=== PATIENT | male | born 1950 | race Caucasian/White ===

== ENCOUNTER 2021-11-05 23:30 | Emergency (ER) | payer MEDICARE, BC ==
[2021-11-05 23:52] VITALS: BP 146/98; PULSE 99
[2021-11-06] MEDS ORDERED: Ondansetron 4 MG Tab.DIS PO ONE (00:10)
[2021-11-06] MEDS ORDERED: Magnesium Citrate Solution 296 ML Bottle PO ONE (02:00)
== END 2021-11-06 02:14 | disposition home or self-care (01) ==
LOC: JP.ED 23:30
DX: K59.01 Slow transit constipation (principal); K21.9 Gastro-esophageal reflux disease without esophagitis; F32.A Depression, unspecified; Z79.899 Other long term (current) drug therapy
CPT/HCPCS: 74019; 74019-26; 99282; 99284; A9270-GY; Q0162

== ENCOUNTER 2022-03-20 08:30 | Inpatient (IN) | payer MEDICARE, BC ==
[~2022-03-20 08:30] MED LIST: Acetaminophen 500 MG Tab PO ONE; Dextrose 5%-Lactated Ringers 1,000 ML IV SCH
[2022-03-20] MEDS ORDERED: Pregabalin 50 MG Cap PO ONE (08:51)
[2022-03-20] MEDS ORDERED: Glycopyrrolate 0.2 MG/ML 5 ML MDV ONE (09:15)
[2022-03-20] MEDS ORDERED: fentaNYL 250 MCG/5 ML SDV ONE (09:15)
[2022-03-20] MEDS ORDERED: Neostigmine Methylsulfate 1 MG/ML 5 ML Syringe ONE (09:15)
[2022-03-20] MEDS ORDERED: Rocuronium 50 MG/5 ML Vial ONE ×2 (09:15→13:01)
[2022-03-20] MEDS ORDERED: Propofol 200 MG/20 ML SDV ONE (09:15)
[2022-03-20] MEDS ORDERED: Succinylcholine 200 MG/10 ML MDV ONE (09:15)
[2022-03-20] MEDS ORDERED: Ondansetron 4 MG/2 ML SDV ONE (09:15)
[2022-03-20] MEDS ORDERED: Dexamethasone 4 MG/ML SDV ONE (09:15)
[2022-03-20] MEDS ORDERED: Sodium Chloride 0.9% 10 ML ONE ×2 (09:17→14:44)
[2022-03-20] MEDS ORDERED: NEOMYCIN ONE ×2 (09:30)
[2022-03-20] MEDS ORDERED: POLYMYXIN B SODIUM CHLORIDE ONE ×2 (09:30)
[2022-03-20] MEDS ORDERED: Naloxone 0.4 MG/ML SDV IVPUSH PRN (10:30)
[2022-03-20] MEDS ORDERED: cefOXitin 2 GM in Sodium Chloride 0.9% 50 ML IV ONE (10:30)
[2022-03-20] MEDS ORDERED: Ketamine 22 MG in Sodium Chloride 0.9% 19.78 ML IV SCH (10:30)
[2022-03-20] MEDS ORDERED: Ketamine 500 MG/5 ML MDV IV SCH (10:30)
[2022-03-20] MEDS ORDERED: Bupivacaine 0.5% 50 ML MDV ONE (11:31)
[2022-03-20] MEDS ORDERED: Lidocaine 1% with EPINEPHrine 1:100,000 50 ML MDV ONE (11:31)
[2022-03-20] MEDS ORDERED: Meropenem 500 MG SDV ONE ×2 (12:22→14:56)
[2022-03-20] MEDS ORDERED: Lactated Ringers 1,000 ML ONE (14:12)
[2022-03-20] MEDS ORDERED: Glucagon,Human Recombinant 1 MG Vial ONE (14:31)
[2022-03-20] MEDS ORDERED: ePHEDrine 50 MG/ML SDV ONE (14:44)
[2022-03-20] MEDS ORDERED: fentaNYL 100 MCG/2 ML SDV ONE (15:05)
[2022-03-20] MEDS ORDERED: Linezolid 600 MG/300 ML Premix Bag IRR ONE (15:30)
[2022-03-20] MEDS ORDERED: Labetalol 20 MG/4 ML Syringe IVPUSH PRN (17:00)
[2022-03-20] MEDS ORDERED: Cyclobenzaprine 10 MG Tab PO PRN (17:00)
[2022-03-20] MEDS ORDERED: ePHEDrine 50 MG/ML SDV IV PRN (17:00)
[2022-03-20] MEDS ORDERED: diphenhydrAMINE 50 MG/ML SDV IVPUSH PRN (17:00)
[2022-03-20] MEDS ORDERED: Ondansetron 4 MG/2 ML SDV IVPUSH PRN (17:00)
[2022-03-20] MEDS: fentaNYL 2,500 MCG in Sodium Chloride 0.9% 200 ML EPIDUR SCH (17:10)
[2022-03-20] MEDS ORDERED: Scopolamine 1.5 MG Transdermal Patch TOP PRN (17:25)
[2022-03-20] MEDS: cefOXitin 2 GM in Sodium Chloride 0.9% 50 ML IV SCH ×2 (17:48→23:15)
[2022-03-20] MEDS: Acetaminophen 500 MG Tab PO SCH (17:51)
[2022-03-20] MEDS: Pantoprazole 40 MG Vial IVPUSH SCH (17:52)
[2022-03-20] MEDS ORDERED: MVI, Adult with Vitamin K 10 ML, Thiamine 200 MG, Zinc/Copper/Manganese/Selenium 1 ML i... IV SCH ×4 (18:00)
[2022-03-20] MEDS: Tamsulosin 0.4 MG Cap.ER PO SCH (20:58)
[2022-03-20] MEDS: traZODone 50 MG Tab PO SCH (20:58)
[2022-03-20] MEDS: atorvaSTATin 20 MG Tab PO SCH (20:58)
[2022-03-21] MEDS: Dextrose 5%-Lactated Ringers 1,000 ML IV SCH ×2 (00:27→02:08)
[2022-03-21] MEDS: Acetaminophen 500 MG Tab PO SCH ×3 (01:49→17:28)
[2022-03-21] MEDS: Naloxone 0.4 MG/ML SDV IV PRN ×2 (02:08→08:42)
[2022-03-21 05:11] LABS: ESTIMATED GFR 46 mL/min (>60)
[2022-03-21] MEDS: cefOXitin 2 GM in Sodium Chloride 0.9% 50 ML IV SCH ×3 (05:31→17:27)
[2022-03-21] MEDS: fentaNYL 2,500 MCG in Sodium Chloride 0.9% 200 ML EPIDUR SCH (07:20)
[2022-03-21] MEDS ORDERED: Dextrose 5%-Lactated Ringers 1,000 ML IV SCH (07:44)
[2022-03-21] MEDS ORDERED: Pregabalin 50 MG Cap PO SCH (09:00)
[2022-03-21] MEDS ORDERED: Lisinopril 5 MG Tab PO SCH (09:00)
[2022-03-21] MEDS ORDERED: Lisinopril 20 MG Tab PO SCH (09:00)
[2022-03-21] MEDS: Docusate Sodium 100 MG Cap PO SCH ×2 (09:18→20:46)
[2022-03-21] MEDS: Bisacodyl 5 MG Tab PO SCH ×2 (09:18→20:46)
[2022-03-21] MEDS: buPROPion 150 MG Tab.ER PO SCH (09:19)
[2022-03-21] MEDS: Lisinopril 10 MG Tab PO SCH (09:19)
[2022-03-21] MEDS: DULoxetine 30 MG Cap PO SCH (09:23)
[2022-03-21] MEDS: Pregabalin 50 MG Cap PO SCH (13:48)
[2022-03-21] MEDS: Metoclopramide 10 MG/2 ML SDV IVPUSH PRN (15:42)
[2022-03-21] MEDS ORDERED: MVI, Adult with Vitamin K 10 ML, Thiamine 200 MG, Zinc/Copper/Manganese/Selenium 1 ML i... IV SCH ×4 (16:00)
[2022-03-21] MEDS ORDERED: Furosemide 40 MG/4 ML VIAL IVPUSH STA (16:44)
[2022-03-21] MEDS: Pantoprazole 40 MG Vial IVPUSH SCH (17:20)
[2022-03-21] MEDS: Aluminum Hydroxide/Magnesium Hydroxide/Simethicone Susp 30 ML Cup PO PRN ×2 (17:51→22:54)
[2022-03-21] MEDS: Tamsulosin 0.4 MG Cap.ER PO SCH (20:46)
[2022-03-21] MEDS: traZODone 50 MG Tab PO SCH (20:46)
[2022-03-21] MEDS: atorvaSTATin 20 MG Tab PO SCH (20:47)
[2022-03-21] MEDS: Pregabalin 100 MG Cap PO SCH (20:49)
[2022-03-22] MEDS: cefOXitin 2 GM in Sodium Chloride 0.9% 50 ML IV SCH ×3 (00:04→13:01)
[2022-03-22] MEDS: Naloxone 0.4 MG/ML SDV IV PRN (00:45)
[2022-03-22] MEDS: Acetaminophen 500 MG Tab PO SCH ×3 (01:58→17:11)
[2022-03-22] MEDS: fentaNYL 2,500 MCG in Sodium Chloride 0.9% 200 ML EPIDUR SCH (04:32)
[2022-03-22 05:01] LABS: ESTIMATED GFR 46 mL/min (>60)
[2022-03-22] MEDS: DULoxetine 30 MG Cap PO SCH (09:28)
[2022-03-22] MEDS: Docusate Sodium 100 MG Cap PO SCH ×2 (09:29→21:24)
[2022-03-22] MEDS: Bisacodyl 5 MG Tab PO SCH ×2 (09:29→21:24)
[2022-03-22] MEDS: Lisinopril 10 MG Tab PO SCH (09:30)
[2022-03-22] MEDS: buPROPion 150 MG Tab.ER PO SCH (09:30)
[2022-03-22] MEDS: Dextrose 5%-Lactated Ringers 1,000 ML with Naloxone 0.4 MG IV SCH ×4 (10:51→21:23)
[2022-03-22] MEDS: Aluminum Hydroxide/Magnesium Hydroxide/Simethicone Susp 30 ML Cup PO PRN ×3 (13:07→22:05)
[2022-03-22] MEDS: Pregabalin 50 MG Cap PO SCH (15:08)
[2022-03-22] MEDS: Pantoprazole 40 MG Vial IVPUSH SCH (17:11)
[2022-03-22] MEDS: Pregabalin 100 MG Cap PO SCH (21:24)
[2022-03-22] MEDS: atorvaSTATin 20 MG Tab PO SCH (21:25)
[2022-03-22] MEDS: Tamsulosin 0.4 MG Cap.ER PO SCH (21:25)
[2022-03-22] MEDS: traZODone 50 MG Tab PO SCH (21:26)
[2022-03-23] MEDS: Metoclopramide 10 MG/2 ML SDV IVPUSH PRN (00:12)
[2022-03-23] MEDS: Acetaminophen 500 MG Tab PO SCH ×3 (01:41→17:56)
[2022-03-23] MEDS: fentaNYL 2,500 MCG in Sodium Chloride 0.9% 200 ML EPIDUR SCH (02:34)
[2022-03-23 05:12] LABS: ESTIMATED GFR 59 mL/min (>60)
[2022-03-23] MEDS ORDERED: Bupivacaine 0.5% 50 ML MDV ONE (06:32)
[2022-03-23] MEDS ORDERED: Lidocaine 1% with EPINEPHrine 1:100,000 50 ML MDV ONE (06:32)
[2022-03-23] MEDS ORDERED: Meropenem 500 MG SDV ONE (06:32)
[2022-03-23] MEDS: Lactated Ringers 500 ML IV SCH ×2 (06:56→14:20)
[2022-03-23] MEDS ORDERED: Ropivacaine 46 ML, dexAMETHasone 8 MG, EPINEPHrine 0.4 MG, Sodium Chloride 0.9% 31.6 ML NERVRT SCH ×4 (07:15)
[2022-03-23] MEDS ORDERED: LORazepam 2 MG/ML SDV IVPUSH PRN (07:56)
[2022-03-23] MEDS ORDERED: Benzocaine/Cetylpyridinium/Menthol Lozenge MUCMEM PRN (07:57)
[2022-03-23] MEDS: Dextrose 5%-Lactated Ringers 1,000 ML with Naloxone 0.4 MG IV SCH ×2 (08:23)
[2022-03-23] MEDS: buPROPion 150 MG Tab.ER PO SCH (08:31)
[2022-03-23] MEDS: Bisacodyl 5 MG Tab PO SCH ×2 (08:31→20:24)
[2022-03-23] MEDS: Docusate Sodium 100 MG Cap PO SCH ×2 (08:32→20:24)
[2022-03-23] MEDS: DULoxetine 30 MG Cap PO SCH (08:32)
[2022-03-23] MEDS: Lisinopril 10 MG Tab PO SCH (08:32)
[2022-03-23] MEDS: Azithromycin 125 MG in Sodium Chloride 0.9% 150 ML IV SCH ×2 (09:43→20:24)
[2022-03-23] MEDS: Dextrose 5%-Lactated Ringers 1,000 ML IV SCH ×2 (12:43→23:58)
[2022-03-23] MEDS: Pregabalin 50 MG Cap PO SCH (14:15)
[2022-03-23] MEDS ORDERED: Lactated Ringers 500 ML IV ONE (14:30)
[2022-03-23] MEDS: Pantoprazole 40 MG Vial IVPUSH SCH (17:55)
[2022-03-23] MEDS: Tamsulosin 0.4 MG Cap.ER PO SCH (20:23)
[2022-03-23] MEDS: atorvaSTATin 20 MG Tab PO SCH (20:23)
[2022-03-23] MEDS: Pregabalin 100 MG Cap PO SCH (20:23)
[2022-03-23] MEDS: traZODone 50 MG Tab PO SCH (20:24)
[2022-03-23] MEDS: hydrOXYzine HCL 100 MG/2 ML SDV IM PRN (23:18)
[2022-03-24 05:09] LABS: ESTIMATED GFR 72 mL/min (>60)
[2022-03-24] MEDS: Acetaminophen 500 MG Tab PO SCH (05:14)
[2022-03-24] MEDS ORDERED: Lidocaine 1% with EPINEPHrine 1:100,000 50 ML MDV ONE (06:51)
[2022-03-24] MEDS ORDERED: Meropenem 500 MG SDV ONE (06:51)
[2022-03-24] MEDS ORDERED: Bupivacaine 0.5% 30 ML SDV ONE (06:51)
[2022-03-24] MEDS ORDERED: Ropivacaine 46 ML, dexAMETHasone 8 MG, EPINEPHrine 0.4 MG, Sodium Chloride 0.9% 31.6 ML NERVRT SCH ×4 (07:15)
[2022-03-24] MEDS ORDERED: fentaNYL 100 MCG/2 ML SDV ONE (07:18)
[2022-03-24] MEDS ORDERED: Propofol 200 MG/20 ML SDV ONE (07:18)
[2022-03-24] MEDS ORDERED: Lactated Ringers 1,000 ML ONE (08:10)
[2022-03-24] MEDS ORDERED: Meropenem 500 MG SDV IRR ONE (08:12)
[2022-03-24] MEDS: Azithromycin 125 MG in Sodium Chloride 0.9% 150 ML IV SCH ×3 (09:57→17:28)
[2022-03-24] MEDS: Acetaminophen 325 MG Tab PO SCH ×3 (11:22→21:01)
[2022-03-24] MEDS ORDERED: Furosemide 20 MG/2 ML VIAL IVPUSH ONE (11:45)
[2022-03-24] MEDS: Lisinopril 10 MG Tab PO SCH (12:20)
[2022-03-24] MEDS: Docusate Sodium 100 MG Cap PO SCH ×2 (12:20→20:58)
[2022-03-24] MEDS: Bisacodyl 5 MG Tab PO SCH ×2 (12:20→20:58)
[2022-03-24] MEDS: buPROPion 150 MG Tab.ER PO SCH (12:21)
[2022-03-24] MEDS: DULoxetine 30 MG Cap PO SCH (12:21)
[2022-03-24] MEDS ORDERED: Dextrose 5%-Lactated Ringers 1,000 ML IV SCH (15:00)
[2022-03-24] MEDS: Haloperidol Lactate 5 MG/ML SDV IVPUSH PRN (15:09)
[2022-03-24] MEDS: Pantoprazole 40 MG Vial IVPUSH SCH (17:28)
[2022-03-24] MEDS: atorvaSTATin 20 MG Tab PO SCH (20:57)
[2022-03-24] MEDS: Melatonin 3 MG Tab PO SCH (20:58)
[2022-03-24] MEDS: Tamsulosin 0.4 MG Cap.ER PO SCH (20:58)
[2022-03-25] MEDS: Azithromycin 125 MG in Sodium Chloride 0.9% 150 ML IV SCH ×2 (01:39→10:17)
[2022-03-25] MEDS: Acetaminophen 325 MG Tab PO SCH ×4 (05:15→21:30)
[2022-03-25] MEDS: Docusate Sodium 100 MG Cap PO SCH ×2 (09:03→21:30)
[2022-03-25] MEDS: DULoxetine 30 MG Cap PO SCH (09:03)
[2022-03-25] MEDS: Lisinopril 10 MG Tab PO SCH (09:04)
[2022-03-25] MEDS: Bisacodyl 5 MG Tab PO SCH (09:04)
[2022-03-25] MEDS: buPROPion 150 MG Tab.ER PO SCH (09:05)
[2022-03-25] MEDS: Acetaminophen 500 MG Tab PO PRN (09:05)
[2022-03-25] MEDS ORDERED: Furosemide 20 MG/2 ML VIAL IVPUSH ONE (09:45)
[2022-03-25] MEDS: Pregabalin 50 MG Cap PO SCH (14:31)
[2022-03-25] MEDS: Pantoprazole 40 MG Vial IVPUSH SCH (17:50)
[2022-03-25] MEDS: Pregabalin 100 MG Cap PO SCH (21:28)
[2022-03-25] MEDS: traZODone 50 MG Tab PO SCH (21:28)
[2022-03-25] MEDS: Melatonin 3 MG Tab PO SCH (21:28)
[2022-03-25] MEDS: Tamsulosin 0.4 MG Cap.ER PO SCH (21:29)
[2022-03-25] MEDS: atorvaSTATin 20 MG Tab PO SCH (21:29)
[2022-03-25] MEDS ORDERED: Trolamine Salicylate/Aloe Vera 10% Crm 85 GM Tube TOP PRN (22:24)
[2022-03-25] MEDS: hydrOXYzine HCL 100 MG/2 ML SDV IM PRN (23:35)
[2022-03-26] MEDS: Haloperidol Lactate 5 MG/ML SDV IVPUSH PRN (00:50)
[2022-03-26 02:19] VITALS: BP 139/83
[2022-03-26] MEDS: Acetaminophen 500 MG Tab PO PRN (02:24)
[2022-03-26] MEDS: Acetaminophen 325 MG Tab PO SCH (04:29)
[2022-03-26] MEDS: hydrOXYzine HCL 100 MG/2 ML SDV IM PRN (04:29)
[2022-03-26 05:33] LABS: ESTIMATED GFR 72 mL/min (>60)
[2022-03-26 07:00] VITALS: PULSE 87
[2022-03-26] MEDS: Docusate Sodium 100 MG Cap PO SCH (08:24)
[2022-03-26] MEDS: DULoxetine 30 MG Cap PO SCH (08:24)
[2022-03-26] MEDS: buPROPion 150 MG Tab.ER PO SCH (08:24)
[2022-03-26] MEDS: Lisinopril 10 MG Tab PO SCH (08:25)
== END 2022-03-26 10:35 | disposition home or self-care (01) | DRG 330 ==
LOC: JP.SDS 08:30 → JP.MS 12:52 → EDSTATUS 13:15 → JP.MS 03-23 11:16
PROVIDERS: ADMIT Surgery; ATTEND Surgery
PROC: 0DSN0ZZ Reposition Sigmoid Colon, Open Approach (ICD-10-PCS; principal; 2022-03-20)
PROC: 0DB80ZZ Excision of Small Intestine, Open Approach (ICD-10-PCS; 2022-03-20)
PROC: 0D1N0ZP Bypass Sigmoid Colon to Rectum, Open Approach (ICD-10-PCS; 2022-03-20)
PROC: 0DNW0ZZ Release Peritoneum, Open Approach (ICD-10-PCS; 2022-03-20)
PROC: 0WQF0ZZ Repair Abdominal Wall, Open Approach (ICD-10-PCS; 2022-03-24)
DX: Z43.3 Encounter for attention to colostomy (principal); K91.71 Accidental puncture and laceration of a digestive system organ or structure during a digestive system procedure; N18.9 Chronic kidney disease, unspecified; M19.90 Unspecified osteoarthritis, unspecified site; G89.4 Chronic pain syndrome; K66.0 Peritoneal adhesions (postprocedural) (postinfection); Y83.8 Other surgical procedures as the cause of abnormal reaction of the patient, or of later complication, without mention of misadventure at the time of the procedure
CPT/HCPCS: 36415; 71045; 71045-26; 74018; 74019; 74019-26; 80053; 83735; 83880; 84100; 85025; 85027; 88304; 88307; 93005; A9270-GY; C9113; J0171; J0330; J0456; J0694; J1100; J1610; J1630; J1940; J2020; J2060; J2185; J2310; J2405; J2704; J2710; J2765; J2795; J3010; J3410; J3411; J3490; J7050; J7120; J7121